=== PATIENT | female | born 1950 | race Two or more races ===

== ENCOUNTER 2020-12-25 07:30 | Inpatient (IN) | payer OTHER ==
[~2020-12-25] VITALS: Ht 170.2 cm; Wt 90.7 kg
[~2020-12-25 07:30] MED LIST: AVAPRO75 MG PO; CIPROFLOXACIN750 MG PO; CLONAZEPAM1 MG PO; DOCUSATE SODIU100 MG PO; GABAPENTIN800 MG PO; PERCOCET 5/3251 TAB PO
[2020-12-31] MEDS ORDERED: GABAPENTIN800 M1 (09:23)
[2020-12-31] MEDS ORDERED: METFORMIN HCL500 M1 (09:23)
[2020-12-31] MEDS ORDERED: SYNTHROID50 MCG (09:23)
== END 2021-01-01 20:48 | DRG 470 ==
LOC: SURH 12-30 07:00 → O/R 12-30 08:33 → SURG 12-30 17:38
PROVIDERS: ADMIT Orthopaedic Surgery; ATTEND Orthopaedic Surgery
PROC: 0QR Lower Bones, Replacement (ICD-10-PCS; 2020-12-30)
PROC: 0SRD0J9 Replacement of Left Knee Joint with Synthetic Substitute, Cemented, Open Approach (ICD-10-PCS; principal; 2020-12-30 07:00)
DX: M17.12 Unilateral primary osteoarthritis, left knee (principal); D62 Acute posthemorrhagic anemia; M85.662 Other cyst of bone, left lower leg; Z20.822 Contact with and (suspected) exposure to COVID-19

== ENCOUNTER 2021-08-27 08:30 | Inpatient (IN) | payer OTHER ==
[~2021-08-27] VITALS: Ht 170.2 cm; Wt 94.8 kg
[~2021-08-27 08:30] MED LIST changes: +GABAPENTIN800 M1; +METFORMIN HCL500 M1; +SYNTHROID50 MCG
[2021-09-01] MEDS ORDERED: LEVOTHYROXINE88 MCG (11:39)
[2021-09-01] MEDS ORDERED: IRBESARTAN150 MG (11:40)
== END 2021-09-03 21:53 | DRG 470 ==
LOC: O/R 09-01 07:09 → SURG 09-01 07:09 → SURH 09-01 08:30 → SURG 09-01 15:44
PROVIDERS: ADMIT Orthopaedic Surgery; ATTEND Orthopaedic Surgery
PROC: 0SRC0J9 Replacement of Right Knee Joint with Synthetic Substitute, Cemented, Open Approach (ICD-10-PCS; principal; 2021-09-01 13:30)
DX: M17.11 Unilateral primary osteoarthritis, right knee (principal); D62 Acute posthemorrhagic anemia; M85.661 Other cyst of bone, right lower leg; I10 Essential (primary) hypertension; Z20.822 Contact with and (suspected) exposure to COVID-19

== ENCOUNTER 2025-01-17 10:07 | Outpatient (CLI) | payer OTHER ==
[~2025-01-17 10:07] MED LIST changes: +IRBESARTAN150 MG; +LEVOTHYROXINE88 MCG
[2025-01-17 10:42] LABS: BASO % 0.3 % (0.1-1.2); EOS # 0.14 (0.04-0.54); EOS % 1.2 % (0.7-7.0); LYMPH # 2.53 (1.18-3.74); LYMPH % 22.3 % (19.3-53.1); MEAN PLATELET VOLUME 11.30 fl (9.4-12.4); MONO # 0.77 (0.24-0.82); MONO % 6.8 % (4.7-12.5); NEUT # 7.85 (1.56-6.13); NEUT % 69.0 % (34.0-71.1); RED CELL DISTRIBUTION WIDTH 14.7 % (11.6-14.4)
[2025-01-17 11:07] LABS: INR 1.02
== END 2025-01-17 10:12 | disposition home or self-care (01) ==
LOC: LAB 10:07
PROVIDERS: ATTEND Radiology Diagnostic Radiology
DX: M89.15 Physeal arrest, femur (principal)

== ENCOUNTER → 2025-01-21 | Outpatient (CLI) | payer OTHER ==
[~2025-01-21] VITALS: Ht 231.1 cm; Wt 91.6 kg
[2025-01-21 09:30] VITALS: BP 127/70; O2SAT 100
[2025-01-21 10:10] VITALS: BP 153/76; O2SAT 99
[2025-01-21 10:25] VITALS: BP 139/61; O2SAT 100
[2025-01-21 10:40] VITALS: BP 139/60; O2SAT 100
== END | disposition home or self-care (01) ==
LOC: TOM 07:27
PROVIDERS: ATTEND Orthopaedic Surgery
DX: D48.0 Neoplasm of uncertain behavior of bone and articular cartilage (principal)

== ENCOUNTER → 2025-02-11 13:23 | Outpatient (CLI) | payer OTHER ==
[2025-02-11 15:27] LABS: CREATININE SERUM 0.79 mg/dL (0.55-1.02)
== END | disposition home or self-care (01) ==
LOC: LAB 13:23
PROVIDERS: ATTEND Radiology Diagnostic Radiology
DX: M25.561 Pain in right knee (principal)

== ENCOUNTER 2025-02-20 07:08 | Outpatient (CLI) | payer OTHER | END 2025-02-20 07:12 | disposition home or self-care (01) | LOC: MRI 07:08 | PROVIDERS: ATTEND Orthopaedic Surgery | DX: M25.561 Pain in right knee (principal) | CPT/HCPCS: 73719; Q9965; 73722 ==